=== PATIENT | male | born 1950 | race Hispanic/Latino ===

== ENCOUNTER 2023-03-24 13:29 | Emergency (ER) | payer OTHER ==
[~2023-03-24] VITALS: Ht 162.6 cm; Wt 65.8 kg
[~2023-03-24 13:29] MED LIST: AMIO200T68 NG; ATOR40TA71 PO; BALS60OI TP; FAMO-136 PO; INSLAN SQ; INSU100V3 SQ; LACT PO; METO25TA6 PO; METO5 PO; MIDO10TA NG; NUT.237L63 NG; POLY17PO4 NG; PRED20TA3 PO
[2023-03-24 13:59] VITALS: BP 125/74
== END 2023-03-24 16:23 | disposition home or self-care (01) ==
LOC: EDH 13:29
DX: K94.23 Gastrostomy malfunction (principal); E78.00 Pure hypercholesterolemia, unspecified; E11.9 Type 2 diabetes mellitus without complications; Z88.8 Allergy status to other drugs, medicaments and biological substances; Z79.4 Long term (current) use of insulin; Z79.899 Other long term (current) drug therapy
CPT/HCPCS: 43762; 74018